=== PATIENT | female | born 1970 | race Caucasian/White ===

== ENCOUNTER 2016-09-28 03:28 | Inpatient (IN) | payer OTHER ==
[~2016-09-28] VITALS: Ht 160 cm; Wt 89.5 kg
[~2016-09-28 03:28] MED LIST: ACET325T33 PO; BISA5TAB6 PO; LEVO500T72 PO
[2016-09-28] MEDS ORDERED: SOD CHLORIDE 0.9% 1,000 ML IV STA ×2 (06:19→08:05)
[2016-09-28] MEDS ORDERED: FAMOTIDINE 20 MG INJ IV STA (06:19)
[2016-09-28] MEDS ORDERED: ONDANSETRON 4 MG INJ IV STA ×2 (06:19→11:43)
[2016-09-28] MEDS ORDERED: morphine 4 MG/ML VIAL IV STA ×3 (06:19→11:43)
[2016-09-28 06:48] LABS: ADD UMIC YES; URINE BILIRUBIN (Dip) 1+ (NEGATIVE); URINE BLOOD (Dip) 1+ (NEGATIVE); URINE COLOR DK. YELLOW (YELLOW); URINE GLUCOSE (Dip) NEGATIVE (NEGATIVE); URINE KETONES (Dip) 40 (NEGATIVE); URINE LEUKOCYTE ESTERASE (Dip) 1+ (NEGATIVE); URINE NITRITE (Dip) NEGATIVE (NEGATIVE); URINE TOTAL PROTEIN (Dip) 2+ (NEGATIVE); URINE UROBILINOGEN (Dip) 1.0 E.U./dL (0.1-1.0)
[2016-09-28 06:58] LABS: BASOPHIL # 0.1 10^3/ul (0.0-0.1); BASOPHILS % 0.5 % (0.0-2.0); EOSINOPHILS % 0.2 % (0.0-7.0); HEMATOCRIT 42.1 % (37.0-47.0); HEMOGLOBIN 14.8 g/dl (12.0-16.0); LYMPHOCYTES # 2.3 10^3/ul (0.8-2.9); MEAN CORPUSCULAR HEMOGLOBIN 34.1 pg (29.0-33.0); MEAN CORPUSCULAR HGB CONC 35.2 g/dl (32.0-37.0); MEAN CORPUSCULAR VOLUME 97.1 fl (82.0-101.0); MEAN PLATELET VOLUME 8.8 fl (7.4-10.4); MONOCYTES % 6.4 % (0.0-11.0); NEUTROPHIL # 11.9 10^3/ul (1.6-7.5); NEUTROPHILS % 77.9 % (39.0-77.0); PLATELET COUNT 257 10^3/UL (140-440); RED BLOOD COUNT 4.33 10^6/ul (4.20-5.40); RED CELL DISTRIBUTION WIDTH 14.5 % (11.5-14.5); UNCORRECTED WBC 15.3 10^3/ul (4.8-10.8); WHITE BLOOD COUNT 15.3 10^3/ul (4.8-10.8)
[2016-09-28 07:00] LABS: ALBUMIN 4.3 g/dl (3.3-4.9)
[2016-09-28] MEDS ORDERED: LORAZEPAM 2 MG INJ IV ONE (07:00)
[2016-09-28 07:01] LABS: POTASSIUM 3.7 mmol/L (3.5-5.1)
[2016-09-28 07:03] LABS: ALBUMIN/GLOBULIN RATIO 1.26; BILIRUBIN,INDIRECT 1.7 mg/dl (0-1.1); BILIRUBIN,TOTAL 1.7 mg/dl (0.2-1.3); CREATININE 0.77 mg/dl (0.44-1.00); TOTAL PROTEIN 7.7 g/dl (6.1-8.1)
[2016-09-28 07:04] LABS: CALCIUM 8.9 mg/dl (8.4-10.2)
[2016-09-28 07:22] LABS: SQUAMOUS EPITHELIAL CELL,UR FEW
[2016-09-28 07:45] LABS: CONDITION 1; LH ANALYZER COMMENTS 1
[2016-09-28 07:46] LABS: ICTOTEST NEGATIVE (NEGATIVE)
[2016-09-28] MEDS ORDERED: SOD CHLORIDE 0.9% 1,000 ML IV SCH (08:06)
--- NOTE | 2016-09-28 08:17 | ERA ---
ER Documentation Chief Complaint Date/Time DATE: 09/28/16 TIME: 08:14 Chief Complaint epigastric pain x 1 day. also c/o frequent urination HPI This is a 46-year-old female presents to the emergency room for evaluation of abdominal pain. The patient states that she has had abdominal pain for 1 days duration, and states that is an achy pain and localizes to the midportion of her abdomen. She does state that she has a history of pancreatitis in the past secondary to alcohol use. She does state that she was drinking alcohol 4 days ago. She denies any illicit drug use, came to the ER for evaluation. She does say she also has nausea and has no aggravating or relieving factors for her pain ROS All systems reviewed and are negative except as per history of present illness. Medications Home Meds Active Scripts Levofloxacin* (Levaquin*) 500 Mg Tablet, 500 MG PO DAILY for 7 Days, TAB Prov:JOSE ALBERTO HENDERSON MD 07/12/16 Bisacodyl* (Bisacodyl*) 5 Mg Tablet.dr, 5 MG PO DAILY Y for CONSTIPATION for 7 Days Prov:JOSE ALBERTO HENDERSON MD 07/12/16 Acetaminophen* (Tylenol*) 325 Mg Tablet, 650 MG PO Q6H Y for PAIN LEVEL 1-3 OR FEVER for 1 Day, TAB Prov:JOSE ALBERTO HENDERSON MD 07/12/16 Allergies Allergies: Coded Allergies: No Known Allergy (Unverified , 09/28/16) PMhx/Soc History of Surgery: Yes (cs 2011, stents (urology)) Anesthesia Reaction: No Hx Neurological Disorder: No Hx Respiratory Disorders: No Hx Cardiac Disorders: No Hx Psychiatric Problems: No Hx Miscellaneous Medical Probl: Yes ("Binge" drinking, pancreatitis, kidney stones) Hx Alcohol Use: Yes (last "binge" this weekend as per patient) Hx Substance Use: No Hx Tobacco Use: No Smoking Status: Never smoker Physical Exam Vitals Vital Signs Date Time Temp Pulse Resp B/P Pulse Ox O2 Delivery O2 Flow Rate FiO2 09/28/16 05:33 112 16 147/88 100 Room Air 09/28/16 03:35 98.3 128 20 140/87 97 Physical Exam INITIAL VITAL SIGNS: Reviewed by me GENERAL: The patient is well developed and appropriate for usual state of health in no apparent distress HEENT: Pupils equal, round, and reactive to light. EOMI. There is no scleral icterus. NECK: C-spine is soft and supple, there is no meningismus. There is no cervical lymphadenopathy. LUNGS: Clear to auscultation bilaterally. There are no rales, wheezes or rhonchi. HEART: Regular rate and rhythm, no murmurs, clicks, rubs or gallops. ABDOMEN: Epigastric tenderness to palpation, negative Pitts sign. There are bowel sounds in all four quadrants. No rebound or guarding. EXTREMITIES: There is no peripheral cyanosis or edema. No focal swelling or erythema. NEUROLOGICAL: The patient moves all four extremities with 5/5 strength. Cranial nerves II - XII are intact. Normal gait. Alert and oriented SKIN: There is no apparent rash or petechiae. HEME/LYMPHATIC: There is no evidence of excessive bruising or lymphedema. PSYCHIATRIC: The patient does not appear anxious or depressed. Result Diagram: 09/28/16 0600 09/28/16 0600 Results 24 hrs Laboratory Tests Test 09/28/16 05:35 09/28/16 06:00 Urine Bilirubin 1+ Urine Clarity HAZY Urine Color DK. YELLOW Urine Glucose NEGATIVE% Urine Hemoglobin 1+ Urine Ictotest NEGATIVE Urine Ketones 40 Urine Leukocyte Esterase 1+ Urine Microscopic RBC 2-5/HPF Urine Microscopic WBC 10-25/HPF Urine Nitrite NEGATIVE Urine Specific [place] >=1.030 Urine Squamous Epithelial Cells FEW Urine Total Protein 2+ Urine Urobilinogen 1.0 E.U./dL Urine pH 5.5 Alanine Aminotransferase (ALT/SGPT) 64IU/L Albumin 4.3g/dl Albumin/Globulin Ratio 1.26 Alkaline Phosphatase 72IU/L Anion Gap 22 Aspartate Amino Transf (AST/SGOT) 58IU/L Basophils # 0.110^3/ul Basophils % 0.5% Blood Morphology Comment Blood Urea Nitrogen 11mg/dl Calcium Level 8.9mg/dl Carbon Dioxide Level 20mmol/L Chloride Level 103mmol/L Creatinine 0.77mg/dl Direct Bilirubin 0.00mg/dl Eosinophils # 0.010^3/ul Eosinophils % 0.2% Globulin 3.40g/dl Glucose Level 114mg/dl Hematocrit 42.1% Hemoglobin 14.8g/dl Indirect Bilirubin 1.7mg/dl Lipase 7478U/L Lymphocytes # 2.310^3/ul Lymphocytes % 15.0% Mean Corpuscular Hemoglobin 34.1pg Mean Corpuscular Hemoglobin Concent 35.2g/dl Mean Corpuscular Volume 97.1fl Mean Platelet Volume 8.8fl Monocytes # 1.010^3/ul Monocytes % 6.4% Neutrophils # 11.910^3/ul Neutrophils % 77.9% Nucleated Red Blood Cells # 0.010^3/ul Nucleated Red Blood Cells % 0.0/100WBC Platelet Count 42847^3/UL Potassium Level 3.7mmol/L Red Blood Count 4.3310^6/ul Red Cell Distribution Width 14.5% Sodium Level 141mmol/L Total Bilirubin 1.7mg/dl Total Protein 7.7g/dl White Blood Count 15.310^3/ul Current Medications Medications (Trade) Dose Ordered Sig/Noah Route PRN Reason Start Time Stop Time Status Last Admin Dose Admin Sodium Chloride (NS) 1,000 ml @ 1,000 mls/hr Q1H STAT IV 09/28/16 06:19 09/28/16 07:18 DC 09/28/16 06:35 Morphine Sulfate (morphine) 4 mg ONCE STAT IV 09/28/16 06:19 09/28/16 06:20 DC 09/28/16 06:35 Ondansetron HCl (Zofran Inj) 4 mg ONCE STAT IV 09/28/16 06:19 09/28/16 06:20 DC 09/28/16 06:34 Famotidine (Pepcid Iv) 20 mg ONCE STAT IV 09/28/16 06:19 09/28/16 06:20 DC 09/28/16 06:34 Lorazepam 1 mg 1 mg ONCE ONCE IV 09/28/16 07:00 09/28/16 07:01 DC 09/28/16 06:58 Sodium Chloride 1,000 ml @ 1,000 mls/hr Q1H STAT IV 09/28/16 08:05 09/28/16 09:04 09/28/16 08:08 Sodium Chloride (NS) 1,000 ml @ 80 mls/hr [id number] IV 09/28/16 08:06 09/28/16 20:35 Ondansetron HCl (Zofran Inj) 4 mg BRIDGE ORDER PRN IV NAUSEA AND/OR VOMITING 09/28/16 08:30 09/29/16 08:29 Acetaminophen (Tylenol Tab) 650 mg ER BRIDGE PRN PO MILD PAIN/FEVER 09/28/16 08:30 2 08:29 Procedures/MDM This 46-year-old female presents to the ER for evaluation of abdominal pain. She does have a history of previous pancreatitis secondary to alcohol use. I did no epigastric tenderness on palpation. She was tachycardic as well. I did give this patient IV fluids, and morphine for pain. She is mildly anxious and also received Ativan. Her lab work does show an elevated lipase of 7400. This patient's lipase has been greater than 20,000 at one point however her previous ER stay as her lipase has been less than 4000. This patient will be placed in for admission at this time under the care of Dr. Jose Alberto Henderson. Departure Diagnosis: Primary Impression: Acute pancreatitis Additional Impression: Abdominal pain Condition: Stable MARYALMAAPRYL FAYE Sep 28, 2016 08:17
[2016-09-28] MEDS ORDERED: ACETAMINOPHEN 325 MG TAB PO PRN (08:30)
[2016-09-28] MEDS ORDERED: ONDANSETRON 4 MG INJ IV PRN (08:30)
[2016-09-28 12:43] VITALS: PULSE 80; TEMP 97.6
[2016-09-28] MEDS: morphine 4 MG/ML VIAL IV PRN ×2 (13:42→20:22)
[2016-09-28 13:44] VITALS: BP 135/73; RESP 18
[2016-09-28] MEDS ORDERED: LORAZEPAM 2 MG INJ IV PRN (15:30)
[2016-09-28] MEDS: HYDROmorphONE 1 MG/ML SYG IV PRN ×3 (15:31→21:55)
[2016-09-28 15:41] VITALS: Ht 160 cm; Wt 89.5 kg
--- NOTE | 2016-09-28 17:34 | QN ---
Documentation Comment [id number] JEAN CARLOS HENDERSON MD Sep 28, 2016 17:34
[2016-09-28 20:14] VITALS: BP 154/69; RESP 18
[2016-09-29] MEDS: HYDROmorphONE 1 MG/ML SYG IV PRN ×5 (01:07→20:18)
[2016-09-29] MEDS: morphine 4 MG/ML VIAL IV PRN ×2 (03:24→13:51)
[2016-09-29] MEDS: PANTOPRAZOLE 40 MG INJ IV SCH (05:53)
[2016-09-29] MEDS: LEVOFLOXACIN 500 MG TAB PO SCH (05:53)
[2016-09-29 07:12] LABS: ALBUMIN 3.5 g/dl (3.3-4.9)
[2016-09-29 07:13] LABS: POTASSIUM 4.2 mmol/L (3.5-5.1)
[2016-09-29 07:15] LABS: CREATININE 0.68 mg/dl (0.44-1.00)
[2016-09-29 07:16] LABS: ALBUMIN/GLOBULIN RATIO 1.16; CALCIUM 7.9 mg/dl (8.4-10.2); TOTAL PROTEIN 6.5 g/dl (6.1-8.1)
--- NOTE | 2016-09-29 07:35 | HP ---
DATE OF ADMISSION: 09/28/2016 HISTORY OF PRESENT ILLNESS: The patient is a 46-year-old female who was discharged in the past with diagnosis of acute pancreatitis, history of UTI, history of kidney stones, status post cystoscopy a nd stent removal. The patient now presents with epigastric pain after drinking alcohol. The patient's previous was 40.6. Current labs shows the ____, WBC 15.3, hematocrit 4214, abi telet count 257, sodium 141, potassium 3.7. The patient's lipase is [address] Beverly has been c alled to see this patient in consultation. PAST MEDICAL HISTORY: Positive for history of kidney stone and stone removal, history of History of stent and stent removal, and history of pancreatitis. ALLERGY HISTORY: NEGATIVE. FAMILY HISTORY: Negative. SOCIAL HISTORY: Positive for drinking; otherwise unremarkable. MEDICATIONS AT HOME: The patient is on no medications at home. CURRENT MEDICATIONS: Currently the patient is on 1. Protonix. 2. Dilaudid. 3. Lorazepam. 4. Morphine sulfate. 5. The patient will be receiving a banana bag. FAMILY HISTORY: Negative. REVIEW OF SYSTEMS: HEENT: Unremarkable. RESPIRATORY: Unremarkable. CARDIOVASCULAR: Unremarkable. ABDOMEN: As mentioned above. PHYSICAL EXAMINATION: GENERAL: The patient is awake, alert. VITAL SIGNS: Stable with pulse 53, blood pressure ____. HEENT: Normocephalic. Pupils equal, reactive to light. NECK: Supple. No JVD. LUNGS: Clear. CARDIOVASCULAR: S1 and S2 normal. ABDOMEN: Soft. Bowel sounds positive. Pain in the epigastric area noted. EXTREMITIES: No cyanosis, clubbing, or edema. CENTRAL NERVOUS SYSTEM: The patient is awake, alert, no focal deficit. LABORATORY DATA: As mentioned above. IMPRESSION: 1. Acute pancreatitis. 2. Alcohol abuse. 3. Leukocytosis. 4. Abnormal liver function tests. PLAN: To keep her n.p.o., intravenous fluid, proton pump inhibitor, pain medication, antibiotic. G I consultation. Orders were done. Dictated By: JEAN CARLOS HENDERSON MD BS/NTS Conf#: [id number] DID#: [id number]
[2016-09-29 07:38] VITALS: BP 135/69; RESP 18
--- NOTE | 2016-09-29 07:51 | CONS ---
DATE OF ADMISSION: 09/28/2016 DATE OF CONSULTATION: TYPE OF CONSULTATION: Gastroenterology. HISTORY OF PRESENT ILLNESS: The patient is a 46-year-old male who came to the emergency room compla ining of abdominal pain. The pain was confined to the naval area and epigastric area. She has a hi story of alcoholic pancreatitis in the past, and the patient has been drinking for the last 4 days. No illicit drugs. Some nausea. 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 REVIEW OF SYSTEMS: Negative. HOME MEDICATIONS: Bisacodyl, acetaminophen, Levaquin. ALLERGIES: NONE. PAST MEDICAL HISTORY: Urology, 2 stents. Binge drinking, pancreatitis, kidney stone in the past. PHYSICAL EXAMINATION: GENERAL: Awake, not in distress. VITAL SIGNS: Stable. HEENT: Unremarkable. NECK: Supple. No thyromegaly, no lymphadenopathy. CARDIOVASCULAR: No murmur, gallop or click. LUNGS: Clear. ABDOMEN: Soft. Tenderness in the epigastric area. Bowel sounds good. No mass in the upper abdome n. EXTREMITIES: No edema. CENTRAL NERVOUS SYSTEM: Grossly within normal limits. LABORATORY: Hematocrit is 34, WBC is 15.3. Lipase was 7,478, bilirubin was 1.7. Alkaline phosphata se was normal. IMPRESSION: 1. Pancreatitis, most probably related to alcohol. 2. Overweight. PLAN: At this point n.p.o., pain management, and IV hydration. Dictated By: MANDY BURGOS/NTS Conf#: [id number] DID#: [id number] CC: JEAN CARLOS HENDERSON MD;*End*
[2016-09-29] MEDS: MULTIVITAMINS 10 ML, THIAMINE 100 MG, FOLIC ACID 1 MG in SOD CHLORIDE 0.9% 1,000 ML IVPB SCH (08:56)
[2016-09-29] MEDS: LORAZEPAM 2 MG INJ IV PRN ×2 (08:57→22:25)
--- NOTE | 2016-09-29 11:42 | CONS ---
Date/Time of Note Date/Time of Note DATE: 09/29/16 TIME: 11:41 Assessment/Plan Assessment/Plan Additional Assessment/Plan IMPRESSION: 1. Pancreatitis, most probably related to alcohol. 2. Overweight. 3. abnormal liver function improved Plan clear liquid diet Consultation Date/Type/Reason Admit Date/Time Sep 28, 2016 at 08:07 Initial Consult Date 24 HR Interval Summary Constitutional: improved Exam/Review of Systems Vital Signs Vitals Vital Signs Date Time Temp Pulse Resp B/P Pulse Ox O2 Delivery O2 Flow Rate FiO2 09/29/16 07:38 98.8 85 18 135/69 95 09/28/16 12:43 Room Air Intake and Output 09/28/16 09/28/16 09/29/16 15:00 23:00 07:00 Intake Total 320 ml 680 ml Balance 320 ml 680 ml Exam Constitutional: alert, oriented, well developed Psych: nl mood/affect, no complaints Head: atraumatic, normocephalic Eyes: EOMI, PERRL, nl conjunctiva, nl lids, nl sclera ENMT: nl external ears & nose, nl lips & teeth, nl nasal mucosa & septum Neck: non-tender, supple Respiratory: clear to auscultation, normal air movement Cardiovascular: nl pulses, regular rate and rhythm Gastrointestinal: nl liver, spleen, non-tender, soft Musculoskeletal: nl extremities to inspection, nl gait and stance Extremities: normal pulses Neurological: DIRECTOR CENTER II-XII intact, nl mental status, nl speech, nl strength Skin: nl turgor, No rash or lesions Lymph: nl lymph nodes Results Result Diagram: 09/28/16 0600 09/29/16 0543 Results 24 hrs Laboratory Tests Test 09/28/16 12:00 09/29/16 05:43 Ethyl Alcohol Level < 10.0 Alanine Aminotransferase (ALT/SGPT) 44 Albumin 3.5 Albumin/Globulin Ratio 1.16 Alkaline Phosphatase 46 Amylase Level 252 H Anion Gap 14 # Aspartate Amino Transf (AST/SGOT) 44 Blood Urea Nitrogen 7 Calcium Level 7.9 L Carbon Dioxide Level 25 Chloride Level 106 Creatinine 0.68 Direct Bilirubin 0.00 Globulin 3.00 Glucose Level 89 Indirect Bilirubin 1.0 Lipase 1294 H Potassium Level 4.2 Sodium Level 141 Total Bilirubin 1.0 Total Protein 6.5 # Medications Medications Current Medications Morphine Sulfate (morphine) 4 mg Q4H PRN IV PAIN Last administered on 09/29/16 03:24; Admin Dose 4 MG; Start 09/28/16 at 13:30 Pantoprazole (Protonix Iv) 40 mg DAILY@06 IV Last administered on 09/29/16 05: 53; Admin Dose 40 MG; Start 09/29/16 at 06:00 Hydromorphone HCl (Dilaudid) 0.5 mg Q3H PRN IV BREAKTHROUGH PAIN Last administered on 09/29/16 11:01; Admin Dose 0.5 MG; Start 09/28/16 at 15:30 Lorazepam (Ativan) 1 mg Q6H PRN IV ANXIETY Last administered on 09/29/16 08:57 ; Admin Dose 1 MG; Start 09/28/16 at 18:00 Levofloxacin 500 mg 500 mg DAILY@06 PO Last administered on 09/29/16 05:53; Admin Dose 500 MG; Start 09/29/16 at 06:00 Multivitamins/ Thiamine HCl/ Folic Acid/Sodium Chloride (Mvi-12 Adult/ Vitamin B1/Folic Acid/NS) 1,011.2 ml @ 125 mls/ hr DAILY@09 IVPB Last administered on 09/29/16 08:56; Admin Dose 125 MLS/HR; Start 09/29/16 at 09:00 MANDY ALLISON MD Sep 29, 2016 11:42
[2016-09-29 11:47] LABS: HEMATOCRIT 39.2 % (37.0-47.0); HEMOGLOBIN 13.1 g/dl (12.0-16.0); MEAN CORPUSCULAR HEMOGLOBIN 33.5 pg (29.0-33.0); MEAN CORPUSCULAR VOLUME 100.3 fl (82.0-101.0); RED BLOOD COUNT 3.91 10^6/ul (4.20-5.40)
[2016-09-29 11:48] LABS: BASOPHILS % 0.4 % (0.0-2.0); EOSINOPHILS # 0.5 10^3/ul (0.0-0.5); EOSINOPHILS % 5.5 % (0.0-7.0); LYMPHOCYTES # 2.3 10^3/ul (0.8-2.9); LYMPHOCYTES % 25.6 % (15.0-51.0); MEAN CORPUSCULAR HGB CONC 33.4 g/dl (32.0-37.0); MONOCYTE # 0.8 10^3/ul (0.3-0.9); MONOCYTES % 8.7 % (0.0-11.0); NEUTROPHIL # 5.3 10^3/ul (1.6-7.5); NEUTROPHILS % 59.5 % (39.0-77.0); PLATELET COUNT 183 10^3/UL (140-440); RED CELL DISTRIBUTION WIDTH 13.9 % (11.5-14.5)
--- NOTE | 2016-09-29 11:52 | PN ---
Date/Time of Note Date/Time of Note DATE: 09/29/16 TIME: 11:51 Assessment/Plan VTE Prophylaxis VTE Prophylaxis Intervention: other Lines/Catheters IV [facility]from [facility] Peripheral IV Urinary Cath still in place: No Assessment/Plan Chief Complaint/Hosp Course IMPRESSION: 1. Acute pancreatitis. 2. Alcohol abuse. 3. Leukocytosis. 4. Abnormal liver function tests. 5 uti plan per gi antibiotic Problems: Subjective 24 Hr Interval Summary Cardiovascular: no complaints Gastrointestinal: no complaints Genitourinary: no complaints Exam/Review of Systems Vital Signs Vitals Vital Signs Date Time Temp Pulse Resp B/P Pulse Ox O2 Delivery O2 Flow Rate FiO2 09/29/16 07:38 98.8 85 18 135/69 95 09/28/16 12:43 Room Air Intake and Output 09/28/16 09/28/16 09/29/16 15:00 23:00 07:00 Intake Total 320 ml 680 ml Balance 320 ml 680 ml Exam Respiratory: clear to auscultation Cardiovascular: regular rate and rhythm Gastrointestinal: soft Musculoskeletal: nl extremities to inspection Extremities: normal pulses Results Result Diagram: 09/29/16 0543 09/29/16 0543 Results 24 hrs Laboratory Tests Test 09/28/16 12:00 09/29/16 05:43 Ethyl Alcohol Level < 10.0 Alanine Aminotransferase (ALT/SGPT) 44 Albumin 3.5 Albumin/Globulin Ratio 1.16 Alkaline Phosphatase 46 Amylase Level 252 H Anion Gap 14 # Aspartate Amino Transf (AST/SGOT) 44 Basophils # 0.0 Basophils % 0.4 Blood Urea Nitrogen 7 Calcium Level 7.9 L Carbon Dioxide Level 25 Chloride Level 106 Creatinine 0.68 Direct Bilirubin 0.00 Eosinophils # 0.5 Eosinophils % 5.5 Globulin 3.00 Glucose Level 89 Hematocrit 39.2 Hemoglobin 13.1 Indirect Bilirubin 1.0 Lipase 1294 H Lymphocytes # 2.3 Lymphocytes % 25.6 Mean Corpuscular Hemoglobin 33.5 H Mean Corpuscular Hemoglobin Concent 33.4 Mean Corpuscular Volume 100.3 Mean Platelet Volume 11.0 #H Monocytes # 0.8 Monocytes % 8.7 Neutrophils # 5.3 Neutrophils % 59.5 Nucleated Red Blood Cells # 0.0 Nucleated Red Blood Cells % 0.0 Platelet Count 183 # Potassium Level 4.2 Red Blood Count 3.91 L Red Cell Distribution Width 13.9 Sodium Level 141 Total Bilirubin 1.0 Total Protein 6.5 # White Blood Count 9.0 # Medications Medications Current Medications Morphine Sulfate (morphine) 4 mg Q4H PRN IV PAIN Last administered on 09/29/16 03:24; Admin Dose 4 MG; Start 09/28/16 at 13:30 Pantoprazole (Protonix Iv) 40 mg DAILY@06 IV Last administered on 09/29/16 05: 53; Admin Dose 40 MG; Start 09/29/16 at 06:00 Hydromorphone HCl (Dilaudid) 0.5 mg Q3H PRN IV BREAKTHROUGH PAIN Last administered on 09/29/16 11:01; Admin Dose 0.5 MG; Start 09/28/16 at 15:30 Lorazepam (Ativan) 1 mg Q6H PRN IV ANXIETY Last administered on 09/29/16 08:57 ; Admin Dose 1 MG; Start 09/28/16 at 18:00 Levofloxacin 500 mg 500 mg DAILY@06 PO Last administered on 09/29/16 05:53; Admin Dose 500 MG; Start 09/29/16 at 06:00 Multivitamins/ Thiamine HCl/ Folic Acid/Sodium Chloride (Mvi-12 Adult/ Vitamin B1/Folic Acid/NS) 1,011.2 ml @ 125 mls/ hr DAILY@09 IVPB Last administered on 09/29/16 08:56; Admin Dose 125 MLS/HR; Start 09/29/16 at 09:00 JEAN CARLOS HENDERSON MD Sep 29, 2016 11:52
[2016-09-29 19:38] VITALS: BP 126/90; RESP 16
[2016-09-30] MEDS: LEVOFLOXACIN 500 MG TAB PO SCH (05:01)
[2016-09-30] MEDS: PANTOPRAZOLE 40 MG INJ IV SCH (05:02)
[2016-09-30] MEDS: morphine 4 MG/ML VIAL IV PRN ×4 (05:08→20:12)
[2016-09-30] MEDS ORDERED: LEVOFLOXACIN 500 MG TAB PO SCH (06:00)
[2016-09-30 06:23] LABS: ALBUMIN 3.7 g/dl (3.3-4.9)
[2016-09-30 06:24] LABS: POTASSIUM 3.4 mmol/L (3.5-5.1)
[2016-09-30 06:26] LABS: ALBUMIN/GLOBULIN RATIO 1.15; BILIRUBIN,INDIRECT 0.6 mg/dl (0-1.1); BILIRUBIN,TOTAL 0.6 mg/dl (0.2-1.3); CREATININE 0.68 mg/dl (0.44-1.00); TOTAL PROTEIN 6.9 g/dl (6.1-8.1)
[2016-09-30 06:27] LABS: CALCIUM 8.6 mg/dl (8.4-10.2)
[2016-09-30 07:43] VITALS: BP 113/44; RESP 18
[2016-09-30 07:49] VITALS: RESP 19
[2016-09-30] MEDS: MULTIVITAMINS 10 ML, THIAMINE 100 MG, FOLIC ACID 1 MG in SOD CHLORIDE 0.9% 1,000 ML IVPB SCH (08:53)
[2016-09-30] MEDS: LORAZEPAM 2 MG INJ IV PRN ×2 (11:26→17:41)
[2016-09-30 13:44] LABS: BASOPHIL # 0.1 10^3/ul (0.0-0.1); BASOPHILS % 0.7 % (0.0-2.0); EOSINOPHILS # 0.6 10^3/ul (0.0-0.5); HEMATOCRIT 40.5 % (37.0-47.0); HEMOGLOBIN 13.7 g/dl (12.0-16.0); LYMPHOCYTES # 2.2 10^3/ul (0.8-2.9); LYMPHOCYTES % 25.6 % (15.0-51.0); MEAN CORPUSCULAR HEMOGLOBIN 33.9 pg (29.0-33.0); MEAN CORPUSCULAR HGB CONC 33.9 g/dl (32.0-37.0); MEAN CORPUSCULAR VOLUME 100.1 fl (82.0-101.0); MEAN PLATELET VOLUME 9.1 fl (7.4-10.4); MONOCYTE # 0.5 10^3/ul (0.3-0.9); MONOCYTES % 6.3 % (0.0-11.0); NEUTROPHIL # 5.2 10^3/ul (1.6-7.5); NEUTROPHILS % 60.4 % (39.0-77.0); PLATELET COUNT 202 10^3/UL (140-440); RED BLOOD COUNT 4.04 10^6/ul (4.20-5.40); RED CELL DISTRIBUTION WIDTH 15.2 % (11.5-14.5); UNCORRECTED WBC 8.6 10^3/ul (4.8-10.8); WHITE BLOOD COUNT 8.6 10^3/ul (4.8-10.8)
[2016-09-30 13:45] LABS: CONDITION 1; LH ANALYZER COMMENTS 1
--- NOTE | 2016-09-30 15:20 | PDOCDIS ---
Discharge Instructions CONDITION Patient Condition: Stable HOME CARE INSTRUCTIONS: Special Diet: Clear-liq ACTIVITY: Activity Restrictions: Slowly Increase Activity FOLLOW UP/APPOINTMENTS Appointments f/u own pcp [address] john 2 wk JEAN CARLOS HENDERSON MD Sep 30, 2016 15:20
[2016-09-30] MEDS ORDERED: LEVO500T72 PO (15:21)
--- NOTE | 2016-09-30 17:05 | CONS ---
Date/Time of Note Date/Time of Note DATE: 09/30/16 TIME: 17:05 Assessment/Plan Assessment/Plan Additional Assessment/Plan Assessment/Plan Assessment/Plan Additional Assessment/Plan IMPRESSION: 1. Pancreatitis, most probably related to alcohol. 2. Overweight. 3. abnormal liver function improved Plan clear liquid diet advance diet Consultation Date/Type/Reason Admit Date/Time Sep 28, 2016 at 08:07 24 HR Interval Summary Constitutional: improved, no complaints Exam/Review of Systems Vital Signs Vitals Vital Signs Date Time Temp Pulse Resp B/P Pulse Ox O2 Delivery O2 Flow Rate FiO2 09/30/16 07:43 98.3 72 18 113/44 96 09/28/16 12:43 Room Air Intake and Output 09/29/16 09/29/16 09/30/16 15:00 23:00 07:00 Intake Total 1971.2 ml 200 ml Output Total 900 ml 400 ml Balance 1071.2 ml -200 ml Exam Constitutional: alert, oriented, well developed Psych: nl mood/affect, no complaints Head: atraumatic, normocephalic Eyes: EOMI, PERRL, nl conjunctiva, nl lids, nl sclera ENMT: nl external ears & nose, nl lips & teeth, nl nasal mucosa & septum Neck: non-tender, supple Respiratory: clear to auscultation, normal air movement Cardiovascular: nl pulses, regular rate and rhythm Gastrointestinal: nl liver, spleen, non-tender, soft Musculoskeletal: nl extremities to inspection, nl gait and stance Extremities: normal pulses Neurological: PLATFORM LOADER II-XII intact, nl mental status, nl speech, nl strength Skin: nl turgor, No rash or lesions Lymph: nl lymph nodes Results Result Diagram: 09/30/16 0500 09/30/16 0500 Results 24 hrs Laboratory Tests Test 09/30/16 05:00 Alanine Aminotransferase (ALT/SGPT) 43 Albumin 3.7 Albumin/Globulin Ratio 1.15 Alkaline Phosphatase 65 Anion Gap 18 H Aspartate Amino Transf (AST/SGOT) 42 Basophils # 0.1 Basophils % 0.7 Blood Morphology Comment Blood Urea Nitrogen 7 Calcium Level 8.6 Carbon Dioxide Level 24 Chloride Level 103 Creatinine 0.68 Direct Bilirubin 0.00 Eosinophils # 0.6 H Eosinophils % 7.0 Globulin 3.20 Glucose Level 103 Hematocrit 40.5 Hemoglobin 13.7 Indirect Bilirubin 0.6 Lipase 615 H Lymphocytes # 2.2 Lymphocytes % 25.6 Mean Corpuscular Hemoglobin 33.9 H Mean Corpuscular Hemoglobin Concent 33.9 Mean Corpuscular Volume 100.1 Mean Platelet Volume 9.1 Monocytes # 0.5 Monocytes % 6.3 Neutrophils # 5.2 Neutrophils % 60.4 Nucleated Red Blood Cells # 0.0 Nucleated Red Blood Cells % 0.0 Platelet Count 202 Potassium Level 3.4 L Red Blood Count 4.04 L Red Cell Distribution Width 15.2 H Sodium Level 142 Total Bilirubin 0.6 Total Protein 6.9 White Blood Count 8.6 Medications Medications Current Medications Morphine Sulfate (morphine) 4 mg Q4H PRN IV PAIN Last administered on 09/30/16 14:50; Admin Dose 4 MG; Start 09/28/16 at 13:30 Pantoprazole (Protonix Iv) 40 mg DAILY@06 IV Last administered on 09/30/16 05: 02; Admin Dose 40 MG; Start 09/29/16 at 06:00 Hydromorphone HCl (Dilaudid) 0.5 mg Q3H PRN IV BREAKTHROUGH PAIN Last administered on 09/29/16 20:18; Admin Dose 0.5 MG; Start 09/28/16 at 15:30 Lorazepam (Ativan) 1 mg Q6H PRN IV ANXIETY Last administered on 09/30/16 11:26 ; Admin Dose 1 MG; Start 09/28/16 at 18:00 Levofloxacin 500 mg 500 mg DAILY@06 PO Last administered on 09/30/16 05:01; Admin Dose 500 MG; Start 09/29/16 at 06:00 Multivitamins/ Thiamine HCl/ Folic Acid/Sodium Chloride (Mvi-12 Adult/ Vitamin B1/Folic Acid/NS) 1,011.2 ml @ 125 mls/ hr DAILY@09 IVPB Last administered on 09/30/16 08:53; Admin Dose 125 MLS/HR; Start 09/29/16 at 09:00 MANDY ALLISON MD Sep 30, 2016 17:05
[2016-09-30 19:39] VITALS: BP 134/76; RESP 18
--- NOTE | 2016-10-03 21:28 | QN ---
Documentation Comment [id number] JEAN CARLOS HENDERSON MD Oct 03, 2016 21:28
--- NOTE | 2016-10-04 08:17 | DS ---
DATE OF ADMISSION: 09/28/2016 DATE OF DISCHARGE: 09/30/2016 HISTORY OF PRESENT ILLNESS: The patient was admitted with diagnoses of acute pancreatitis, alcohol abuse, , abnormal LFTs. The patient received a banana bag, IV fluids, antibiotic. Dr. Beverly consultation. The patient's symptoms are resolving. The patient appeared to be _ ____ pancreatitis alcohol abuse. Leukocytosis resolving. . The patient was given levofloxacin the need to abstain from alcohol. Follow with PCP and Dr. Beverly as an outpatie nt. Dictated By: JEAN CARLOS HENDERSON MD BS/NTS Conf#: [id number] DID#: [id number]
== END 2016-09-30 21:30 | disposition home or self-care (01) | DRG 440 ==
LOC: E/R 03:28 → MS2 08:07
PROVIDERS: ADMIT Internal Medicine Nephrology; ATTEND Internal Medicine Nephrology
DX: K85.90 Acute pancreatitis without necrosis or infection, unspecified (principal); E66.3 Overweight; F10.10 Alcohol abuse, uncomplicated; D72.829 Elevated white blood cell count, unspecified; Z68.35 Body mass index [BMI] 35.0-35.9, adult
CPT/HCPCS: 36415; 80053; 80306; 81001; 81003; 82150; 83690; 85025; 87086; 96361; 96374; 96375; 96376; C9113; J1170; J2060; J2270; J2405; J3411; J7030